=== PATIENT | male | born 2000 | race Caucasian/White ===

== ENCOUNTER 2021-02-18 21:53 | Observation (INO) | payer OTHER ==
[~2021-02-18] VITALS: Ht 190.5 cm; Wt 84.8 kg
[~2021-02-18 21:53] MED LIST: IBUPROFEN600 MG PO; NAPROSYN500 MG PO
[2021-02-18 22:38] LABS: HEMOGLOBIN 16.2 gm/dl (14.0-17.5); RED BLOOD COUNT 5.43 M/UL (4.20-5.50); WHITE BLOOD COUNT 11.5 K/UL (4.5-11.0)
[2021-02-18 22:59] LABS: BUN/CREATININE RATIO 10 (0-10)
--- NOTE | 2021-02-20 02:14 | NUR ---
AT 0208 ON 02/20/21, WHILE HELPING PATIENT CLEAN UP WOUNDS AND FACE, SMALL AMOUNT OF WHITE POWDER-TYPE SUBSTANCE IN TWO SMALL PLASTIC BAGGIES DISCOVERED IN LEFT SOCK. [facility] SENIOR NET C DEVELOPER AT BEDSIDE AND IS AWARE. MANAGER QA ALSO MADE AWARE. PT WAS SUBSEQUENTLY SEARCHED BY NURSING STAFF AND SENIOR NET C DEVELOPER AT THE OFFICER'S DISCRETION. NOTHING ELSE FOUND VIA THE SEARCH OF PATIENT. [facility]
== END 2021-02-21 11:24 | disposition home or self-care (01) ==
LOC: ER1 21:53 → CDU 02-19 01:00 → M/S 02-19 01:00
PROVIDERS: Student in an Organized Health Care Education/Training Program; ADMIT Surgery
DX: S27.2XXA Traumatic hemopneumothorax, initial encounter (principal); S22.41XA Multiple fractures of ribs, right side, initial encounter for closed fracture; F17.210 Nicotine dependence, cigarettes, uncomplicated; Z79.899 Other long term (current) drug therapy; V89.2XXA Person injured in unspecified motor-vehicle accident, traffic, initial encounter
CPT/HCPCS: 36415; 70450; 71045; 71260; 72125; 72128; 72131; 80053; 80307; 81001; 83690; 85025; 86850; 86900; 86901; 94760; 96374; 99285; G0378; G0480; J2270; J2405; J3010; Q9967